=== PATIENT | female | born 1995 | race Caucasian/White ===

== ENCOUNTER 2016-04-20 18:10 | Emergency (ER) | payer SELFPAY ==
[2016-04-20] MEDS ORDERED: ONDANSETRON INJ 4 MG/2 ML VIAL IV ONE (19:06)
[2016-04-20] MEDS ORDERED: LACTATED RINGERS 1,000 ML IVS PRN (19:07)
[2016-04-20 19:14] VITALS: O2SAT 100
--- NOTE | 2016-04-20 19:27 | ED.PDOC ---
History of Present Illness - General Chief Complaint: Abdominal Pain Stated Complaint: nausea, vomiting, abd pain Time Seen by Provider: 04/20/16 19:20 Information Source: patient Exam Limitations: no limitations - History of Present Illness Initial Comments: She stated initially started as watery diarrhea 4 days ago which got better then followed by nausea vomiting that she couldnot take anything down except for sips of fluid the last 3 days and generalized sharp abdominal pain,stated no bm the last 3 days Abdominal Pain Onset Location: generalized abdomen Pain Radiation: no radiation Quality: intermittent, sharpness Timing/Duration: days - 3 Improving Factors: nothing Worsening Factors: eating Review of Systems - Review of Systems Constitutional: States: no symptoms reported EENTM: States: no symptoms reported Respiratory: States: no symptoms reported Cardiology: States: no symptoms reported Gastrointestinal/Abdominal: States: see HPI, abdominal pain, vomiting Genitourinary: States: no symptoms reported Musculoskeletal: States: no symptoms reported Skin: States: no symptoms reported Neurological: States: no symptoms reported Endocrine: States: no symptoms reported Hematologic/Lymphatic: States: no symptoms reported Past Medical History (General) - Patient Medical History Hx Stroke: No Hx Asthma: No Hx of COPD: No Hx Congestive Heart Failure: No Hx Diabetes: No Surgical History: no surgical history - Vaccination History Hx Influenza Vaccination: No Hx Pneumococcal Vaccination: No - Social History Hx Tobacco Use: No - Female History Patient is a Female of Child Bearing Age (10 -59 yrs old): Yes - [place] implants Family Medical History - Family History Mother Hx Family Hypertension: Yes Physical Exam - Physical Exam General Appearance: Alert, Comfortable, No apparent distress Eyes, Ears, Nose, Throat Exam: PERRL/EOMI, normal ENT inspection, TMs normal, pharynx normal Neck: non-tender, full range of motion, supple, normal inspection Respiratory: chest non-tender, lungs clear, normal breath sounds, no respiratory distress Cardiovascular/Chest: normal peripheral pulses, regular rate, rhythm, no edema, no gallop, no JVD, no murmur Peripheral Pulses: No deficit Gastrointestinal/Abdominal: normal bowel sounds, soft, no organomegaly, no pulsatile mass, tenderness - generalized Back Exam: normal inspection, no CVA tenderness, no vertebral tenderness Extremity: normal range of motion, non-tender Neurologic: no motor/sensory deficits, alert, normal mood/affect Skin Exam: normal color, warm/dry, cyanosis Lymphatic: no adenopathy Progress - EKG/XRAY/CT CT: abd/pelvis:fluid tranverse colon and pericolic area sugg.of recent diarrhea Departure - Departure Clinical Impression: Gastroenteritis Abdominal pain Qualifiers: Abdominal location: generalized Qualifier Code: (R10.84) Generalized abdominal pain Time of Disposition: 22:43 Disposition: Discharge to Home or Self Care Condition: Good Departure Forms: ED Discharge - Pt. Copy, Patient Portal Self Enrollment Instructions: DI for Abdominal Pain-Adult, DI for Viral Gastroenteritis -- Adult, Gastroenteritis Diet Prescriptions: Promethazine HCl 50 mg PO TID PRN #20 tab PRN Reason: Nausea Home Medications: Ambulatory Orders Promethazine HCl 50 mg PO TID PRN #20 tab 04/20/16 Additional Instructions: Avoid greasy spicy foods until better Comments: AVOID GREASY SPICY FOODS UNTIL BETTER;RETURN TO EMERGENCY ROOM NEEDED
[2016-04-20] MEDS ORDERED: PROMETHAZINE HCL INJ 25 MG/ML VIAL IM ONE (21:18)
[2016-04-20] MEDS ORDERED: MORPHINE SULFATE INJ 10 MG/ML VIAL IV ONE (21:18)
--- NOTE | 2016-04-20 22:26 | CT ---
EXAM DESCRIPTION: CT ABDOMEN PELVIS WITHOUT IV CONTRAST CLINICAL HISTORY: Generalized abdominal pain COMPARISON: None Available. TECHNIQUE: Contiguous axial images of the abdomen and pelvis were obtained followed by reconstruction images. FINDINGS: The liver, spleen, pancreas and kidneys are within normal limits. There is no hydronephrosis or renal stones. The gallbladder is unremarkable by CT criteria. Adrenal glands are within normal limits. Aorta is of normal caliber and tapering. There is no free fluid in the abdomen or pelvis. There is no bowel obstruction. There is no stranding of the mesenteric fat to suggest an inflammatory response. The appendix is within normal limits. There is no pericecal inflammation. There is a small umbilical hernia with fatty component only. There is an intrauterine device in place. There are air-fluid levels within the ascending colon and transverse colon which could be secondary to a diarrheal state. Small mesenteric lymph nodes could be secondary to mesenteric adenitis, please correlate. IMPRESSION: There are fluid levels within the proximal colon could be secondary to a diarrheal state, please correlate. Small mesenteric lymph nodes could be secondary to mesenteric adenitis, please correlate. Electronically signed by: Herberth Holley 04/20/2016 22:24
[2016-04-20 22:57] VITALS: BP 115/74; TEMP 97.8
== END 2016-04-20 22:56 | disposition home or self-care (01) ==
LOC: ER 18:10
DX: K52.9 Noninfective gastroenteritis and colitis, unspecified (principal)
CPT/HCPCS: 36415; 74176; 80048; 81001; 83690; 84703; 85025; J2270; J2405; J2550; J7120

== ENCOUNTER → 2019-02-16 | Outpatient (CLI) | payer OTHER ==
--- NOTE | 2019-02-17 13:21 | US ---
EXAM DESCRIPTION: Pelvis Transvaginal: Ultrasound. CLINICAL HISTORY: 23 years Female Amenorrhea COMPARISON: CT abdomen and pelvis March 2016. TECHNIQUE: Endovaginal scanning; Cortés-scale and Doppler modes. FINDINGS: Uterus 8.0 x 4.3 x 2.0 cm cc. Endometrial thickness is 11.1 mm. No fluid. Myometrium appears heterogeneous. Uterus not retroflexed. Cervix unremarkable. Cul-de-sac contains no fluid. Right ovary 2.7 x 2.1 x 1.4 cm 4.0 mL.. Normal color Doppler vascularity. Small follicles with no cysts. No adnexal mass or free fluid. Left ovary 1.9 x 1.8 x 1.7 cm 3.0 mL.. Normal color Doppler vascularity. 1.3 cm follicle but no cysts. No adnexal mass or free fluid. IMPRESSION: 1. Normal position size of the uterus. Minimal endometrial thickening but no fluid. No fluid in the cul-de-sac or cervix. 2. Bilateral ovaries with follicles but no cysts. No adnexal mass. Electronically signed by: Dontae Cotton MD 02/17/2019 1:19 PM [facility]
== END | disposition home or self-care (01) ==
LOC: US 11:33
PROVIDERS: ATTEND Nurse Practitioner Family
DX: N91.1 Secondary amenorrhea (principal)